=== PATIENT | female | born 1990 | race Caucasian/White ===

== ENCOUNTER 2016-11-04 15:22 | Emergency (ER) | payer OTHER ==
[~2016-11-04] VITALS: Ht 160 cm; Wt 72.8 kg
[2016-11-04 15:29] VITALS: BP 124/74; TEMP 37.4; Ht 160 cm; Wt 72.8 kg
[2016-11-04] MEDS ORDERED: BCPILLS PO (15:46)
[2016-11-04] MEDS ORDERED: MULTTAB5 PO (15:46)
[2016-11-04] MEDS ORDERED: CEPH500C PO (15:58)
--- NOTE | 2016-11-04 15:58 | EMERGENCY ROOM VISIT NOTE ---
ED Visit Note First contact with patient: 15:32 Chief Complaint: Blood Behind Ear/Painful History of Present Illness: Patient is a 26-year-old female who presents to the emergency Department this afternoon for evaluation of infection to hearing out of the RIGHT ear. She reports that the ear was pierced in August. She is had no issues until yesterday when she noticed discharge and drainage from behind the ear. She was able to express some clearish blood-like material. She 's had no fevers or chills. There is been no redness, swelling, or fevers. The patient is not a diabetic. There has been no mouth exposures to her ear. She rates her current discomfort as a 3/10. She is tried nothing for her symptoms to this point. She denies any headaches, dizziness, light headedness, nausea, or vomiting. Medications: Reviewed and discussed with the patient. Allergies: No known allergies. PMH: No pertinent past medical history. SHx: Patient is a 26-year-old female who lives locally. ROS: All pertinent positive and negative review of systems are appropriately documented in the History of Present Illness. Physical Exam: VITAL SIGNS - Vital signs and nursing notes were reviewed. GENERAL - Well nourished, well developed 26-year-old female in no acute distress. Pt communicates well with provider and answers questions appropriately. SKIN - mild erythema and bloody serosynovitis discharge appreciated to the posterior aspect of the RIGHT earlobe. No purulent discharge noted. No lymphangitic streaking. Mildly tender to palpation. No warmth to touch. HEAD - NC/AT with no obvious deformities. EYES - PERRL with EOMI bilaterally. Sclera without injection. Palpebral conjunctiva pink and moist. EARS - As above. No pain elicited with palpation of the tragus bilaterally. External auditory canals without discharge or otorrhea. Tympanic membranes pearly uriostegui without retraction or bulging. No fluid or purulent material visualized behind the TM. Handle of malleus, umbo, cone of light, pars tensa/ flaccid all easily visualized. NOSE - Midline and without cyanosis. No purulent drainage noted. Nasal mucosa without mucus discharge. MOUTH/OROPHARYNX - Without perioral cyanosis. Buccal mucosa without and without leukoplakia. Tongue midline with equal elevation of palate bilaterally. No tonsillar hypertrophy, erythema, or exudates noted. Good dentition noted. NECK - Neck with FROM. Supple to palpation. No lymphadenopathy noted. No nuchal rigidity. ED Course: Patient was seen and evaluated by myself. I had a lengthy discussion with the patient regarding symptoms and management. The patient was treated with initial dose of Keflex orally in the emergency department. She will use warm compresses to the area for comfort. She will follow-up with [facility] services or return to the emergency department for any changing or worsening symptoms. She was educated on refraining from having the ear pierced for the next several months. The patient was educated on worrisome symptoms for return visit to the emergency department. Patient discharged home in good condition. In the evaluation and treatment of this patient, the following differential diagnoses were considered: Cellulitis, dermatitis, foreign body, amongst others. Impression: Earring Infected of the RIGHT Ear Lobe Discharge Instructions: You've been seen in the emergency Department this afternoon for an infected earlobe secondary to piercing. You were prescribed Keflex to be taken scribed. This is an antibiotic. All antibiotics have the potential to cause diarrhea. Stop this medication and contact a medical provider if you were to develop any significant adverse side effects including: wheezing, shortness of breath, passing out, vomiting, or a diffuse rash. Always take antibiotics as directed and COMPLETE the ENTIRE course regardless of the improvement of your symptoms. For pain control, you can use the following [id number] medicines (if >12 yo): - Regular strength (325mg/tab) Tylenol (acetaminophen) 2 tabs every 4-6 hours as needed. Do not exceed 12 tablets in a 24 hour period. Avoid taking more than 4 grams (4000 mg) of Tylenol per day. This includes any other sources of acetaminophen you may take on a regular basis. - Regular strength (200 mg/tab) Advil (ibuprofen) 1-2 tabs every 4-6 hours as needed. Do not exceed a dose of 3200 mg per day. Warm compresses to the area for comfort. Follow-up with [facility] services from today's visit. Return to the emergency department for any changing or worsening symptoms. Current/Historical Medications Scheduled Control Pills ( Control Pills), 1 TAB PO DAILY Cephalexin Monohydrate (Keflex), 500 MG PO TID Multiple Vitamins W/ Minerals (Centrum), 1 TAB PO DAILY Vital Signs Date Time Temp Pulse Resp B/P Pulse Ox O2 Delivery O2 Flow Rate FiO2 11/04/16 16:05 67 18 98 11/04/16 15:29 37.4 97 18 124/74 99 Room Air Medications Administered Medications (Trade) Dose Ordered Sig/[place]air Route Start Time Stop Time Status Last Admin Dose Admin Cephalexin Monohydrate (Keflex Cap) 500 mg NOW ONCE PO 11/04/16 16:00 11/04/16 16:01 DC 11/04/16 16:00 500 MG Departure Information Impression Primary Impression: Infection of skin of right ear lobe Dispostion Home / Self-Care Condition GOOD Prescriptions Cephalexin Monohydrate (Keflex) 500 Mg Cap 500 MG PO TID for 7 Days, #21 CAP Prov: Hussein Golden, SYLVIA 11/04/16 Referrals No Doctor, Assigned (PCP) Patient Instructions My [facility] Additional Instructions You've been seen in the emergency Department this afternoon for an infected earlobe secondary to piercing. You were prescribed Keflex to be taken scribed. This is an antibiotic. All antibiotics have the potential to cause diarrhea. Stop this medication and contact a medical provider if you were to develop any significant adverse side effects including: wheezing, shortness of breath, passing out, vomiting, or a diffuse rash. Always take antibiotics as directed and COMPLETE the ENTIRE course regardless of the improvement of your symptoms. For pain control, you can use the following [id number] medicines (if >12 yo): - Regular strength (325mg/tab) Tylenol (acetaminophen) 2 tabs every 4-6 hours as needed. Do not exceed 12 tablets in a 24 hour period. Avoid taking more than 4 grams (4000 mg) of Tylenol per day. This includes any other sources of acetaminophen you may take on a regular basis. - Regular strength (200 mg/tab) Advil (ibuprofen) 1-2 tabs every 4-6 hours as needed. Do not exceed a dose of 3200 mg per day. Warm compresses to the area for comfort. Follow-up with [facility] from today's visit. Return to the emergency department for any changing or worsening symptoms.
[2016-11-04] MEDS ORDERED: CEPHALEXIN MONOHYDRATE 250 MG CAP PO ONE (16:00)
[2016-11-04 16:05] VITALS: PULSE 67; O2SAT 98
== END 2016-11-04 16:06 | disposition home or self-care (01) ==
LOC: C.EDB 15:25 → C.EDD 16:06
DX: L08.9 Local infection of the skin and subcutaneous tissue, unspecified (principal); Z79.3 Long term (current) use of hormonal contraceptives